=== PATIENT | female | born 1965 | race Hispanic/Latino ===

== ENCOUNTER 2017-08-12 08:53 | Emergency (ER) | payer SELFPAY ==
[2017-08-12] MEDS ORDERED: Morphine 2 MG/ML SYRINGE ONE ×2 (09:29→09:30)
[2017-08-12] MEDS ORDERED: Ondansetron HCl/PF 4 MG/2 ML Vial ONE (09:29)
--- NOTE | 2017-08-12 10:00 | RAD ---
FRONTAL VIEW CHEST: Comparison: None. History: Nausea, vomiting. Gallbladder disease. FINDINGS: There is subtle nodular density at the left lung base adjacent the left heart border, nonspecific. Ri ght lung is clear. No effusion or pneumothorax. No free air. There is mild vascular calcification. Ca rdiac silhouette is normal in size. IMPRESSION: Subtle nodular density left lower lung zone, nonspecific. This may be further assessed with follow up dedicated two view chest to evaluate for persistence. Code LN. POS: FAVIOLA
--- NOTE | 2017-08-12 10:19 | ULT ---
RIGHT UPPER QUADRANT SONOGRAM: Date: 08/12/17 HISTORY: Nausea and vomiting. Right upper quadrant pain. FINDINGS: The gallbladder has a normal appearance without evidence of stones. Common duct is 0.4 cm diameter. L iver is unremarkable without focal mass or intrahepatic biliary dilatation. No free fluid is apparent . Small cyst arises from the cortex of the right kidney. IMPRESSION: No evidence of gallstones or biliary obstruction. POS: FAVIOLA
[2017-08-12 10:40] LABS: #Eosinphils 0.1 thou/uL (0.0-0.7); #Lymphocytes 2.5 thou/uL (1.20-3.40); #Monocytes 0.7 thou/uL (0.11-0.59); #Neutrophils 5.4 thou/uL (1.40-6.50); %Basophils 0.4 % (0.0-1.0); %Eosinophils 0.7 % (0.0-10.0); %Lymphocytes 28.9 % (21.0-51.0); %Monocytes 8.1 % (0.0-10.0); %Neutrophils 61.9 % (42.0-75.0); Hemoglobin 14.7 g/dL (12.0-16.0); Mean Corpuscular HGB CONC 32.8 g/dL (32.0-36.0); Mean Corpuscular Hemoglobin 31.6 pg (27.0-31.0); Mean Corpuscular Volume 96.3 fl (81.0-99.0); Mean Platelet Volume 8.2 fL (7.4-10.4); Platelet Count 267 thou/uL (130-400); RBC Distribution Width 12.1 % (11.5-14.5); Red Blood Cell (RBC) Count 4.64 mill/uL (4.20-5.40); White Blood Cell (WBC) Count 8.7 thou/uL (4.8-10.8)
[2017-08-12 10:45] LABS: Prothrombin Time 13.3 SEC (12.0-14.7)
[2017-08-12] MEDS ORDERED: Mag-Al 1200 mg/1200 mg/30 ML UDCUP ONE (10:45)
[2017-08-12] MEDS ORDERED: Lidocaine Viscous Sol 2% 15 ml UD Cup ONE (10:45)
[2017-08-12 10:50] LABS: PTT 21.4 SEC (22.9-36.1)
[2017-08-12 11:03] LABS: CKMB 0.3 ng/mL (0-6.6); Troponin I Less than 0.010 ng/mL (< 0.028)
[2017-08-12 11:07] LABS: ALT (SGPT) 44 U/L (8-55); AST (SGOT) 49 U/L (5-34); Albumin 4.2 g/dL (3.5-5.0); Alkaline Phosphatase 97 U/L (40-150); Anion Gap 15 mmol/L (10-20); BUN (Urea Nitrogen) 10 mg/dL (9.8-20.1); Bilirubin, Total 1.1 mg/dL (0.2-1.2); CK (CPK) 61 U/L (29-168); Calc. Creatinine Clearance 0 mL/min (70-130); Calcium 9.6 mg/dL (7.8-10.44); Carbon Dioxide 17 mmol/L (22-29); Chloride 111 mmol/L (98-107); Estimated GFR-MDRD Greater than 90; Globulin 3.6 g/dL (2.4-3.5); Glucose 96 mg/dL (70-105); Lipase 14 U/L (8-78); Potassium 4.3 mmol/L (3.5-5.1); Protein, Total 7.8 g/dL (6.0-8.3); Sodium 139 mmol/L (136-145)
== END 2017-08-12 11:26 | disposition home or self-care (01) ==
LOC: ERS 08:53
DX: R10.11 Right upper quadrant pain (principal); R91.1 Solitary pulmonary nodule; R10.13 Epigastric pain; I25.2 Old myocardial infarction; F41.9 Anxiety disorder, unspecified; Z87.891 Personal history of nicotine dependence
CPT/HCPCS: 36415; 71045; 76705; 80053; 82550; 82553; 83690; 83880; 84484; 85025; 85610; 85730; 93005; 96374; J2270; J2405